=== PATIENT | female | born 1995 | race Caucasian/White ===

== ENCOUNTER 2023-04-16 19:28 | Inpatient (IN) ==
[2023-04-16] MEDS ORDERED: OXYTOCIN 30 UNITS/500 ML BAG IV PRN (20:28)
[2023-04-16] MEDS ORDERED: LIDOCAINE 1% LOCAL 20 ML VIAL INFIL PRN (20:28)
[2023-04-16] MEDS ORDERED: PENICILLIN G POTASSIUM 6 MU in DEXTROSE 5% 250 ML IV STA (20:28)
--- NOTE | 2023-04-16 21:20 | History & Physical Report ---
Date of Service April 16, 2023 Assessment & Plan (1) Group B streptococcal infection during : Plan: Sahara is a 27-year-old G1, P0 currently at 39 weeks 3 days gestational age with spontaneous rupture of membranes in early labor. 1. Fetus - category 1 tracing 2. Labor-confirmed spontaneous rupture of membranes. Patient having painful regular contractions. We will continue to monitor and augment if needed 3. GBS positive will initiate penicillin 4. Vitals within normal limits. (2) Supervision of normal first : (3) SROM (spontaneous rupture of membranes): History of Present Illness Primary Care Provider: Talita Zurita MD Sahara is a 27-year-old G1, P0 currently at 39 weeks 3 days gestational age presents with spontaneous rupture of membranes in early labor. Denying vaginal bleeding reporting good movement. complicated by GBS positive status Allergies Allergy/AdvReac Type Severity Reaction Status Date / Time bee venom protein (honey bee) Allergy Intermediate Hives Verified 04/16/23 20:23 chlorhexidine Allergy Intermediate Rash Verified 04/10/23 09:08 nickel Allergy Mild Rash Verified 04/10/23 09:08 Home Medications Medication Instructions Recorded Confirmed Type prenat.vits,manan,riq-sxda-gsdmu 1 tab PO DAILY 09/18/22 04/16/23 History breast pump #1 ea 02/13/23 04/10/23 Rx ferrous sulfate [Iron (ferrous 325 mg PO Q OTHER DAY 04/03/23 04/16/23 History sulfate)] Patient History Medical History Depression with anxiety Osteosarcoma Varicella vaccination Surgical History S/P wisdom tooth extraction Status post below-knee amputation of left lower extremity Family History Grandfather (Maternal) Myocardial infarction Denies family history of Ovarian cancer Prostate cancer Breast cancer Colorectal cancer Social History Smoking Status: Never smoker Do You Dip or Chew Tobacco: No; Hx Alcohol Use: No Hx Substance Use: No Preferred Language: Swedish Communication Ability: Effective Directory Clerk Required: No Beliefs That Will Affect Care: None marital status: marital status details: tanesha Santana (30) [phone] Current Living Situation: Spouse Current Living Situation Comment: lives with fob, cat-fob changing litter current occupational status: employed and student 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 Other Information That Helps Us Care for You: No Feels Safe at Home: Yes Safety Concerns: Feels Safe At This Time Physical Exam Genitourinary: OB Exam Abdomen: + vertex Manual OB Exam: + cervical dilation 3 cm, + cervical effacement 70%, + station -2 and + amniotic fluid (Grossly ruptured) clear OB Exam Monitor Tracing: + external FHT monitor used, + external uterine monitor used, + category I and + normal FHT variability Results & Data Vital Signs (Past 12 Hours) Vital Signs Temp Pulse Resp BP 04/16/23 19:46 85 116/72 04/16/23 19:40 36.6 C 16 Coding Level of Care Code None Diagnoses Group B streptococcal infection during O98.819; B95.1 Supervision of normal first Z34.00 SROM (spontaneous rupture of membranes)
[2023-04-16 21:37] LABS: Hematocrit (blood only) 34.8 % (37.0-47.0); Mean Corpuscular Hemoglobin 32.8 pg (25.0-34.0); Mean Corpuscular Hgb Conc 34.5 g/dL (32.0-36.0); Mean Corpuscular Volume 95.1 fL (80.0-100.0); Mean Platelet Volume 10.1 fL (9.4-12.4); Platelet Count 140 K/uL (130-400); RDW Coefficient of Variation 14.4 % (11.5-14.5); RDW Standard Deviation 49.1 fL (36.4-46.3); Red Blood Count 3.66 M/uL (4.20-5.40); White Blood Count 6.93 K/ul (4.8-10.8)
[2023-04-16] MEDS: LACTATED RINGER'S 1,000 ML IV PRN (21:49)
[2023-04-16] MEDS ORDERED: ePHEDrine sulfate 50 MG/ML AMP ONE (23:22)
[2023-04-16] MEDS ORDERED: BUPIVACAINE 0.25% PF 30 ML VIAL ONE (23:22)
[2023-04-16] MEDS ORDERED: LIDOCAINE 2%/EPINEPHRINE 1:200,000 20 ML PF ONE (23:22)
[2023-04-16] MEDS ORDERED: fentaNYL citrate PF 100 MCG/2 ML VIAL ONE (23:22)
[2023-04-16] MEDS ORDERED: SODIUM CHLORIDE 0.9% PF INJ 10 ML VIAL ONE (23:22)
[2023-04-16] MEDS ORDERED: fentaNYL 2MCG/ML ROPIVACAINE 1.25MG/ML 100 ML BAG EPI ONE (23:23)
[2023-04-16] MEDS ORDERED: PENICILLIN G POTASSIUM 3 MU in DEXTROSE 5% 100 ML IV PRN (23:29)
[2023-04-16] MEDS ORDERED: BUPIVACAINE 0.25% PF 30 ML VIAL EPI PRN (23:32)
[2023-04-16] MEDS ORDERED: LIDOCAINE 2%/EPINEPHRINE 1:200,000 20 ML PF EPI STA (23:32)
[2023-04-16] MEDS ORDERED: NALBUPHINE HCL INJ 10 MG/ML AMP IV PRN (23:32)
[2023-04-16] MEDS ORDERED: fentaNYL citrate PF 100 MCG/2 ML VIAL EPI PRN (23:32)
[2023-04-16] MEDS ORDERED: SODIUM CHLORIDE 0.9% PF INJ 10 ML VIAL EPI PRN (23:32)
[2023-04-16] MEDS ORDERED: BUPIVACAINE 0.25% PF 30 ML VIAL EPI STA (23:32)
[2023-04-16] MEDS ORDERED: fentaNYL citrate PF 100 MCG/2 ML VIAL EPI STA (23:32)
[2023-04-16] MEDS ORDERED: LIDOCAINE 2% MPF LOCAL 5 ML VIAL EPI PRN (23:32)
[2023-04-16] MEDS ORDERED: NALOXONE HCL 1 MG in SODIUM CHLORIDE 0.9% 1000ML 1,000 ML IV PRN (23:32)
[2023-04-16] MEDS ORDERED: ePHEDrine sulfate 50 MG/ML AMP IV PRN (23:32)
[2023-04-16] MEDS ORDERED: diphenhydrAMINE 50 MG/ML VIAL IV PRN (23:32)
[2023-04-16] MEDS ORDERED: SODIUM CHLORIDE 0.9% PF INJ 10 ML VIAL EPI STA (23:32)
[2023-04-16] MEDS ORDERED: fentaNYL 2MCG/ML ROPIVACAINE 1.25MG/ML 100 ML BAG EPI PRN (23:32)
[2023-04-16] MEDS ORDERED: ROPIVACAINE 0.5% PF 5 MG/ML 20 ML VIAL EPI PRN (23:32)
[2023-04-16] MEDS ORDERED: NALOXONE HCL 0.4 MG/1 ML VIAL/CARP IV PRN (23:32)
--- NOTE | 2023-04-16 23:35 | Anesthesiology Consultation ---
Date of Service April 16, 2023 History Height/Weight Height: 5 ft 4 in Weight: 59.421 kg Allergies Allergy/AdvReac Type Severity Reaction Status Date / Time bee venom protein (honey bee) Allergy Intermediate Hives Verified 04/16/23 20:23 chlorhexidine Allergy Intermediate Rash Verified 04/10/23 09:08 nickel Allergy Mild Rash Verified 04/10/23 09:08 Medications Home Medications Medication Instructions Recorded Confirmed Last Taken prenat.vits,manan,zji-hpjl-ajqgw 1 tab PO DAILY 09/18/22 04/16/23 04/16/23 breast pump #1 ea 02/13/23 04/10/23 Unknown ferrous sulfate [Iron (ferrous 325 mg PO Q OTHER DAY 04/03/23 04/16/23 04/16/23 sulfate)] Active Medications Generic Name Dose Route Start Last Admin Trade Name Freq PRN Reason Stop Dose Admin Lactated Ringer's 1,000 mls @ 125 mls/hr 04/16/23 20:28 04/16/23 23:15 Lr IV 04/18/23 20:27 999 mls/hr .Q8H PRN Infusion L&D Protocol Protocol Past Medical History Medical History Depression with anxiety Osteosarcoma Varicella vaccination Exercise / Class Metabolic Activity II 4-5 Yardwork/Stairs/Walk up hill Past Family History Family History Grandfather (Maternal) Myocardial infarction Denies family history of Ovarian cancer Prostate cancer Breast cancer Colorectal cancer Past Surgical History Surgical History S/P wisdom tooth extraction Status post below-knee amputation of left lower extremity Past Anesthesia History No Hx of Anesthesia Complications and No Family Hx of Anesthesia Complications History of PONV No Hx of PONV and No Hx of Motion Sickness Social History Smoking Status: Never smoker Do You Dip or Chew Tobacco: No Hx Alcohol Use: No Hx Substance Use: No Physical Exam Vital Signs Last Vital Signs Temp 36.5 C 04/16/23 23:27 Pulse 80 04/16/23 23:27 Resp 18 04/16/23 23:27 BP 107/60 04/16/23 23:27 Constitutional WD/WN, vitals as above cooperative ENMT Thyromental Distance: > or= 3.5 Finger Breadths Mallampati Class: II Neck trachea midline, no thyromegaly Respiratory normal respiratory effort, lungs clear to auscultation Cardiovascular RRR, no murmur, no edema Heart Sounds: normal S1 and normal S2 Palpation: normal PMI Musculoskeletal Head/Neck/Chest: normocephalic and head atraumatic Spine: normal cervical ROM Neurologic normal touch/pain/proprioception, CN's II-XI intact bilaterally (Grossly intact) and moves all extremities Psychiatric A+Ox3, euthymic affect Testing Laboratory Results 04/16/23 20:54
[2023-04-17] MEDS: LACTATED RINGER'S 1,000 ML IV PRN (01:54)
[2023-04-17] MEDS ORDERED: OXYTOCIN 30 UNITS/500 ML BAG IV PRN (04:48)
[2023-04-17] MEDS ORDERED: IBUPROFEN 600 MG TAB PO PRN (04:48)
[2023-04-17] MEDS ORDERED: HYDROCORTISONE ACETATE 25 MG SUPP PR PRN (04:48)
[2023-04-17] MEDS ORDERED: ACETAMINOPHEN 325 MG TAB PO PRN (04:48)
[2023-04-17] MEDS ORDERED: bisacodyL 10 MG SUPP PR PRN (04:48)
[2023-04-17] MEDS ORDERED: miSOPROStoL 200 MCG TAB PR ONE (04:48)
[2023-04-17] MEDS ORDERED: BENZOCAINE 20% SPRY 85 APPLN/85 GM CAN EXT PRN (04:48)
[2023-04-17] MEDS ORDERED: DIPHTHERIA/TETANUS/PERTUSSIS Vaccine (Tdap, Age 7+yrs) 0.5mL SYR/VL IM ONE (04:48)
--- NOTE | 2023-04-17 04:48 | Delivery Summary ---
Vaginal Delivery Summary Date of Service April 17, 2023 Vaginal Delivery Summary Patient progressed to 10 cm dilated, 100% effaced, +2 station and pushed over intact perineum with epidural anesthesia she delivered a viable with weight and Apgars pending. Had the delivered in GABBIE position rest to low transverse. A single loose nuchal was noted which was easily reduced. Body shoulders quickly followed. was noted be vigorous soon after delivery and a 1 minute delayed cord clamping was initiated. Cord was then double clamped and cut. Cord blood obtained. Attention was then turned to deliver the placenta was delivered intact three-vessel cord gentle cord traction. Inspection of the perineum vagina and cervix there is noted to be a left labial laceration which were repaired with 3-0 Vicryl all sponge instrument counts are correct at the completion of the case [facility] Vaginal Delivery Charge Delivery Type Details: [facility]
[2023-04-17] MEDS: PRENATAL VITAMIN 1 TAB PO SCH (08:13)
[2023-04-17] MEDS: FERROUS SULFATE 325 MG TAB PO SCH (08:13)
[2023-04-17] MEDS: DOCUSATE SODIUM 100 MG CAP PO SCH ×2 (08:13→21:03)
--- NOTE | 2023-04-17 08:26 | Anesthesia Procedure Note ---
Date of Service April 17, 2023 Anesthesia Post Epidural Note Vital Signs Vital Signs: Temp Pulse Resp BP Pulse Ox 98.2 F 87 20 109/65 97 04/17/23 03:39 04/17/23 08:09 04/17/23 07:10 04/17/23 08:09 04/17/23 04:43 Notes Mental Status: alert / awake / arousable and participated in evaluation Nausea / Vomiting: adequately controlled Pain: adequately controlled Airway Patency, RR, SpO2: stable & adequate BP & HR: stable & adequate Hydration State: stable & adequate Neuraxial Anesthesia: was administered and sensory block is resolving Anesthetic Complications: no major complications apparent and Pt Satisfied with anesthetic care Epidural: Removed without complications and With tip intact
--- NOTE | 2023-04-18 05:23 | Obstetrical Progress Note ---
Date of Service April 18, 2023 Assessment & Plan (1) Spontaneous vaginal delivery: Plan: recovering well Plan 27 yo post day 1 Admission and Anticipated Discharge Date Admission Date: April 16, 2023 Supervising Physician Co-Signing Physician Notes Resident Physician Supervision Note: I was present with Dr. Eugene during the history and exam. I discussed the case with the resident and agree with the findings and plan as documented in the note. Any exceptions or clarifications are listed here: PPD#1 doing well. Working on , staying until tomorrow. Documented By: Caitlin Tavera, Subjective 27 yo post day 1 Ambulation: ambulating normally Voiding: no voiding problems Passing Gas:: Yes Diet Tolerance:: regular diet Lochia:: Small Feeding Type:: breast feeding Current Pain Level(1-10): minimal Resting comfortably this AM with no acute complaints. Breast feeding. No ZAIDI, CP, SOB, N/V/D, leg cramping or edema Review of Systems Review of Systems: reviewed, per hpi Physical Exam Physical Exam: General: patient resting comfortably, NAD, non-toxic in appearance, AA&O x 4, answers questions appropriately Skin: warm, dry, intact HEENT: NC/AT, anicteric sclera, conjunctiva without injection, moist mucus membranes Heart: +S1/S2, regular, no m/r/g Lungs: equal air entry bilaterally, no rales/rhonchi/wheezes Abd: +BS, soft, NT/ND, uterine fundus firm at umbilicus Ext: warm, no clubbing/cyanosis or edema, Jana's neg Neuro: nonfocal, patient AA&O x 4, speech intact, no facial droop, moving all extremities on command. Results & Data Vital Signs (Past 12 Hours) Vital Signs Temp Pulse Resp BP Pulse Ox O2 Del Method 04/18/23 00:00 36.7 C 91 H 16 112/71 99 Room Air 04/17/23 20:00 36.8 C 85 16 108/65 98 Room Air Resident Activity Tracking Resident Involvement: Resident Care Provided Care Provided: Adult Hospital Medicine
[2023-04-18] MEDS: DOCUSATE SODIUM 100 MG CAP PO SCH ×2 (09:02→20:53)
[2023-04-18] MEDS: PRENATAL VITAMIN 1 TAB PO SCH (09:02)
[2023-04-18] MEDS: FERROUS SULFATE 325 MG TAB PO SCH (09:02)
[2023-04-18] MEDS ORDERED: bisacodyL 5 MG TABEC PO SCH (20:00)
--- NOTE | 2023-04-19 06:35 | Obstetrical Progress Note ---
Date of Service April 19, 2023 Assessment & Plan (1) Spontaneous vaginal delivery: Plan: recovering well breast feeding without complications plan for dc today Plan 27 yo post day 2 Admission and Anticipated Discharge Date Admission Date: April 16, 2023 Supervising Physician Co-Signing Physician Notes Resident Physician Supervision Note: I interviewed and examined the patient. Discussed with Dr. Eugene and agree with findings and plan as documented in the note. Any exceptions or clarifications are listed here: Doing well. Plan d/c. Instructions given. Documented By: Mariely Pfeiffer MD, FACOG Subjective 27 yo post day 2 Ambulation: ambulating normally Voiding: no voiding problems Passing Gas:: Yes Diet Tolerance:: regular diet Lochia:: Small Feeding Type:: breast feeding Current Pain Level(1-10): minimal Resting comfortably this AM with no acute complaints. Breast feeding. No ZAIDI, CP, SOB, N/V/D, leg cramping or edema Wants DC today Review of Systems Review of Systems: reviewed, per hpi Physical Exam Physical Exam: General: patient resting comfortably, NAD, non-toxic in appearance, AA&O x 4, answers questions appropriately Skin: warm, dry, intact HEENT: NC/AT, anicteric sclera, conjunctiva without injection, moist mucus membranes Heart: +S1/S2, regular, no m/r/g Lungs: equal air entry bilaterally, no rales/rhonchi/wheezes Abd: +BS, soft, NT/ND, uterine fundus firm at umbilicus Ext: warm, no clubbing/cyanosis or edema, Jana's neg Neuro: nonfocal, patient AA&O x 4, speech intact, no facial droop, moving all extremities on command. Results & Data Vital Signs (Past 12 Hours) Vital Signs Temp Pulse Resp BP Pulse Ox O2 Del Method 04/18/23 23:17 36.8 C 85 16 104/67 98 Room Air 04/18/23 20:57 36.8 C 87 16 111/71 100 Room Air Resident Activity Tracking Resident Involvement: Resident Care Provided Care Provided: Adult Hospital Medicine
[2023-04-19] MEDS: FERROUS SULFATE 325 MG TAB PO SCH (09:18)
[2023-04-19] MEDS: DOCUSATE SODIUM 100 MG CAP PO SCH (09:18)
[2023-04-19] MEDS: PRENATAL VITAMIN 1 TAB PO SCH (09:18)
--- NOTE | 2023-04-20 07:51 | Coding Query ---
There is no degree too a labial laceration. Degree of lac only applies to Perineal lacs CODING QUERY To promote full compliance with coding requirements relating to patient care, provider participation is requested in all cases of political scientist uncertainty. Please assist us with the question(s) below: Coding Question(s): Please clarify the degree of the labia laceration. Physician's Response(s): Thank you Vivienne Raya Principal Diagnosis: "that condition established after study, to be chiefly responsible for occasioning the admission of the patient to the hospital for care." Co-Existing Principal Diagnosis: "when two or more diagnoses equally meet the criteria for principal diagnosis as determined by the circumstances of admission, diagnostic work up, and/or therapy provided, and the Alphabetic Index, Tabular List, or another coding guideline does not provide sequencing direction, any one of the diagnoses may be sequenced first." "When the physician has documented what appears to be a current diagnosis in the body of the record, but has not included the diagnosis in the final diagnostic statement, the physician should be asked whether the diagnosis should be added." (Source Coding [facility] 2 QTR90. p3-4) BOB
== END 2023-04-19 13:30 | disposition home or self-care (01) | DRG 807 ==
LOC: OPB 19:28 → 4S1 19:29 → 4E2 04-17 08:57